=== PATIENT | male | born 2000 | race Caucasian/White ===

== ENCOUNTER 2022-12-13 07:01 | Emergency (ER) | payer OTHER, BC, SELFPAY ==
--- NOTE | 2022-12-13 | ECG_ITS ---
Test Reason : chest pain Blood Pressure : / mmHG Vent. Rate : 085 BPM Atrial Rate : 085 BPM P-R Int : 134 ms QRS Dur : 084 ms QT Int : 334 ms P-R-T Axes : 061 087 059 degrees QTc Int : 397 ms Normal sinus rhythm with sinus arrhythmia Normal ECG No previous ECGs available Referred By: Generic ED Physician Electronically Signed By:RADHAMES LAMAR MD
--- NOTE | ~2022-12-13 | XR_ITS ---
EXAMINATION: XR CHEST CLINICAL INFORMATION: Right-sided chest pain COMPARISON: None TECHNIQUE: 2 views of the chest were obtained. FINDINGS: No significant abnormality is noted involving the heart, lungs, mediastinum, bony thorax or soft tissues. XR/XR chest 2V IMPRESSION: No acute pulmonary disease.
[2022-12-13 07:04] VITALS: BP 118/76; PULSE 86; RESP 22; TEMP 36.8; O2SAT 98; BMI 28.1
[2022-12-13 07:24] VITALS: BP 126/69; PULSE 83; RESP 13; O2SAT 97
--- NOTE | 2022-12-13 07:34 | PC.NURSE ---
pt a+o x4, he reports that he woke up this morning with r sided chest discomfort that he describes as chest pressure . he reports that this is the first time this has happened. pt has hx of asthma and he reports that this doesn't feel like his asthma. he denies sob. vss.
--- OUTSIDE RECORDS SUMMARY | 2022-12-13 07:40 | XMS_ITS | Continuity of Care Document ---
:2000 Author Organization [facility] Address [address] [place] [address]- Care Team Providers Name Role Phone Not on Staff, PCP Primary Care Physician Unavailable Encounter [facility] [place] Date(s): 07/22/22 - 07/23/[address] [address]- Encounter Diagnosis Opiate overdose (Final) - 07/23/22 Discharge Disposition: A-D/C Home Attending Physician: Davdi Jenkins MD Admitting Physician: David Jenkins MD Referring Physician: Not on Staff, Referring MD Allergies, Adverse Reactions, Alerts No Known Allergies Medications Advair Diskus 250 mcg-50 mcg inhalation powder 1 puffs, Inhalation, 2 times a day, rinse mouth and throat after use, # 60 each, 3 Refills, Maintenance, 05/09/15 11:58:02, Powder, 1 puffs Inhalation 2 times a day,Instr:rinse mouth and throat after use Start Date: 05/09/15 Status: OrderedAdvair Diskus 500 mcg-50 mcg inhalation powder 1, puffs, Inhalation, 2 times a day, rinse mouth and throat after use, # 1 cartridge, Refills 1, Tot. Refills 1, Maintenance, 06/30/19 12:05:26 EDT, Powder, Route to Pharmacy Electronically, [id number], [facility] #... Start Date: 06/30/19 Status: OrderedAlbuterol 0 Refills, Maintenance, 05/09/15 11:47:34 Start Date: 05/09/15 Status: Orderedalbuterol CFC free 90 mcg/inh inhalation aerosol 2 to 6 puffs, Inhalation, Every 4 hours, PRN, use with spacer chamber, # 1 each, Refills 0, Tot. Refills 0, Maintenance, 06/30/19 12:06:31 EDT, Route to Pharmacy Electronically, [id number], [facility] #[id number] Start Date: 06/30/19 Status: OrderedFlovent HFA 220 mcg/inh inhalation aerosol 2 puffs, Inhalation, 2 times a day, 0 Refills, Maintenance, 05/09/15 11:43:22 Start Date: 05/09/15 Status: Orderedloratadine 10 mg oral tablet 1 tablet = 10 mg, By Mouth, Daily, # 30 tablet, 3 Refills, Maintenance, 05/09/15 11:44:31, Tablet, 1tablet By Mouth Daily Start Date: 05/09/15 Status: OrderedProAir HFA 90 mcg/inh inhalation aerosol with adapter 2 puffs, Inhalation, Every 4 hours, PRN for wheezing, use with spacer chamber as directed 15 minutesbefore exercise, # 8.5 Gm, 2 Refills, Maintenance, 05/09/15 12:01:35, Aerosol Start Date: 05/09/15 Status: OrderedSingulair 10 mg oral tablet 1 tablet = 10 mg, By Mouth, Daily in PM, # 30 tablet, 0 Refills, Maintenance, 05/09/15 11:45:55, Tablet Start Date: 05/09/15 Status: OrderedSingulair 10 mg oral tablet 10 mg, 1, tablet, By Mouth, Daily, # 30 tablet, Refills 1, Tot. Refills 1, Maintenance, 06/30/19 12:06:19 EDT, Route to Pharmacy Electronically, [id number], [facility] #[id number] Start Date: 06/30/19 Status: OrderedTriamcinolone 0.1% ointment Topically, 3 times a day, 0 Refills, Maintenance, 05/09/15 11:46:49 Start Date: 05/09/15 Status: Ordered Problem List Condition Effective Dates Status Health Status Informant Asthma(Confirmed) Active Results Radiology Reports Exam Date Time Procedure Performing Provider Status 07/23/22 4:31 AM Chest 2 Views Frontal and Lat Jazmín Gordon (Verified) Notes:(Chest 2 Views Frontal and Lat) Reason For Exam: Shortness of Breath, Fever;Other:RESULT: Chest 2 Views Frontal and Lat Chest 2 Views Frontal and Lat REASON: Shortness of Breath, Fever, concern for pneumonia COMPARISON: Chest x-ray 05/09/2015 FINDINGS: LINES AND TUBES: None. LUNGS AND PLEURA: The lungs are clear. No pleural effusion. No pneumothorax. HEART, MEDIASTINUM AND ZAC: Normal. BONES AND SOFT TISSUES: Normal. IMPRESSION: Normal. I have personally reviewed the images and I agree with this report. WSN: [id number] Ordering Physician: Pal Neri Dictated By: Altagracia Forman MD Dictated Date/Time: 07/23/22 9:23 am Reviewed By: Juan Alberto Canales MD Signed By: Juan Alberto Canales MD Signed Date/Time: 07/23/22 9:28 am Transcribed By: CAMMY Transcribed Date/Time: 07/23/22 7:57 am Vital Signs Most recent to oldest 1 2 3 [Reference Range]: Oxygen Saturation [94-100 %] 94 % 97 % 97 % (07/23/22 5:14 AM) (07/23/22 12:48 AM) (07/22/22 11 :33 PM) Pulse Rate [55-90 bpm] 89 bpm 89 bpm 108 bpm (07/23/22 5:14 AM) (07/23/22 12:48 AM) *H* (07/22/22 11:30 P M) Blood Pressure [90-138/55-84 120/66 mm Hg 141/77 mm Hg mm Hg] (07/23/22 5:14 AM) *H* (07/22/22 11:30 PM) Respiratory Rate [16-30 18 br/min 14 br/min 16 br/mi n br/min] (07/23/22 5:14 AM) *L* (07/22/22 11:30 PM) (07/23/22 12:48 AM) Temperature [96.8-100.4 98.2 DegF DegF] (07/22/22 11:30 PM) Liters per Minute 2 L/min 1 L/min 2 L/min (07/23/22 12:48 AM) (07/22/22 11:33 PM) (07/22/22 1 0:46 PM) Mode of Delivery (Oxygen) Room air Nasal cannula Nasal cannula (07/23/22 5:14 AM) (07/23/22 12:48 AM) (07/22/22 11 :33 PM) Blood pressure sites Arm, left Arm, right (07/23/22 5:14 AM) (07/22/22 11:30 PM) Temperature Route Oral (07/22/22 11:30 PM) Social History Social History Type Response Smoking Status Never smoker; Tobacco user i n household: No entered on: 05/09/15 Sex Note BHSPowerscribe , CIS S: TRANSCRIBE Juan Alberto Canales MD: VERIFY Altagracia Forman MD: SIGN Event Display: Result: Authored Date: [id number] Chest 2 Views Frontal and Lat REASON: Shortness of Breath, Fever, concern for pneumonia COMPARISON: Chest x-ray 05/09/2015 FINDINGS: LINES AND TUBES: None. LUNGS AND PLEURA: The lungs are clear. No pleural effusion. No pneumothorax. HEART, MEDIASTINUM AND ZAC: Normal. BONES AND SOFT TISSUES: Normal. IMPRESSION: Normal. I have personally reviewed the images and I agree with this report. WSN: [id number] Ordering Physician: Pal Neri Dictated By: Altagracia Forman MD Dictated Date/Time: 07/23/22 9:23 am Reviewed By: Juan Alberto Canales MD Signed By: Juan Alberto Canales MD Signed Date/Time: 07/23/22 9:28 am Transcribed By: CAMMY Transcribed Date/Time: 07/23/22 7:57 am Care Team PersonnelName: Not on Staff, PCP
--- OUTSIDE RECORDS SUMMARY | 2022-12-13 07:40 | XMS_ITS | Continuity of Care Document ---
:2000 Author Organization [facility] Address [address] [place] [address]- Care Team Providers Name Role Phone Angel PORTILLO, Raj Pradhan Primary Care Physician [place] [facility] [place] - 05/02/[address] [address] Attending Physician: Ian Toussaint MD, V Admitting Physician: Ian Toussaint MD, V Allergies, Adverse Reactions, Alerts Substance Reaction Severity Status NKA Active Medications Advair Diskus 250 mcg-50 mcg inhalation [...] 12:05:26 EDT, Powder, Route to Pharmacy Electronically, [id number], [facility] #... Start Date: 06/30/19 Status: OrderedAlbuterol 0 Refills, Maintenance, 05/09/15 11:47:34 Start Date: 05/09/15 Status: Orderedalbuterol CFC free 90 mcg/inh inhalation aerosol 2 to 6 puffs, Inhalation, Every 4 hours, PRN, use with spacer chamber, # 1 each, Refills 0, Tot. Refills 0, Maintenance, 06/30/19 12:06:31 EDT, Route to Pharmacy Electronically, [id number], [email or web address] #[id number] Start Date: 06/30/19 Status: OrderedFlovent HFA 220 [...] 06/30/19 12:06:19 EDT, Route to Pharmacy Electronically, [id number], [facility] #[id number] Start Date: 06/30/19 Status: OrderedTriamcinolone 0.1% ointment Topically, 3 times a day, 0 Refills, Maintenance, 05/09/15 11:46:49 Start Date: 05/09/15 Status: Ordered Problem List Condition Effective Dates Status Health Status Informant Asthma(Confirmed) Active Social History Social History Type Response Smoking Status Never smoker; Tobacco user i n household: No entered on: 05/09/15 Sex
--- OUTSIDE RECORDS SUMMARY | 2022-12-13 07:40 | XMS_ITS | Continuity of Care Document ---
:2000 Author Organization [facility] Address [address] [place] [address]- Care Team Providers Name Role Phone Raj Ortiz MD Primary Care Physician [place] [facility] [place]): [place]21 [facility] [address] [place] [address] [address] [place], [place] [address] Attending Physician: Norbert PORTILLO, Ian Randhawa Referring Physician: Raj Ortiz MD Allergies, Adverse Reactions, Alerts Substance Reaction Severity [...] 12:05:26 EDT, Powder, Route to Pharmacy Electronically, [id number], [facility] #... Start Date: 06/30/19 Status: OrderedAlbuterol 0 Refills, Maintenance, 05/09/15 11:47:34 Start Date: 05/09/15 Status: Orderedalbuterol CFC free 90 mcg/inh inhalation aerosol 2 to 6 puffs, Inhalation, Every 4 hours, PRN, use with spacer chamber, # 1 each, Refills 0, Tot. Refills 0, Maintenance, 06/30/19 12:06:31 EDT, Route to Pharmacy Electronically, [id number], [facility] #[id number] Start Date: 06/30/19 Status: OrderedFlovent HFA 220 [...] 06/30/19 12:06:19 EDT, Route to Pharmacy Electronically, [id number], [facility] #[id number] Start Date: 06/30/19 Status: OrderedTriamcinolone 0.1% ointment Topically, 3 times a day, 0 Refills, Maintenance, 05/09/15 11:46:49 Start Date: 05/09/15 Status: Ordered Problem List Condition Effective Dates Status Health Status Informant Asthma(Confirmed) Active Vital Signs Most recent to oldest [Reference Range]: 1 Height 171 cm (01/22/21 4:15 PM) Weight 78.7 kg (01/22/21 4:15 PM) Body Mass Index [18.5-24.99] 26.91 *H* (01/22/21 4:15 PM) Dry Weight 78.7 kg (01/22/21 4:15 PM) Social History Social History Type Response Smoking Status Never smoker; Tobacco user i n household: No entered on: 05/09/15 Sex
--- OUTSIDE RECORDS SUMMARY | 2022-12-13 07:40 | XMS_ITS | Continuity of Care Document ---
:2000 Author Organization [facility] Address [address] [place] [address] [address] [place] [address]- Care Team Providers Name Role Phone Angel PORTILLO, Raj Pradhan Primary Care Physician [place] [facility] [place] 02[place]/21 [facility] [address] [place] [address] [address] [place] [address]- Attending Physician: Óscar Vo Admitting Physician: AdmtrÓscar Referring Physician: Admtr, Ar8 Allergies, Adverse Reactions, Alerts Substance Reaction Severity [...] 12:05:26 EDT, Powder, Route to Pharmacy Electronically, [id number], [facility] #... Start Date: 06/30/19 Status: OrderedAlbuterol 0 Refills, Maintenance, 05/09/15 11:47:34 Start Date: 05/09/15 Status: Orderedalbuterol CFC free 90 mcg/inh inhalation aerosol 2 to 6 puffs, Inhalation, Every 4 hours, PRN, use with spacer chamber, # 1 each, Refills 0, Tot. Refills 0, Maintenance, 06/30/19 12:06:31 EDT, Route to Pharmacy Electronically, [id number], [facility] #[id number] Start Date: 06/30/19 Status: OrderedFlovent HFA 220 [...] 06/30/19 12:06:19 EDT, Route to Pharmacy Electronically, [id number], [facility] #[id number] Start Date: 06/30/19 Status: OrderedTriamcinolone 0.1% ointment Topically, 3 times a day, 0 Refills, Maintenance, 05/09/15 11:46:49 Start Date: 05/09/15 Status: Ordered Problem List Condition Effective Dates Status Health Status Informant Asthma(Confirmed) Active Social History Social History Type Response Smoking Status Never smoker; Tobacco user i n household: No entered on: 05/09/15 Sex
--- OUTSIDE RECORDS SUMMARY | 2022-12-13 07:40 | XMS_ITS | Continuity of Care Document ---
:2002 Author Organization [facility] Address [address] [place] [address]- Care Team Providers Name Role Phone Angel PORTILLO, Raj Pradhan Primary Care Physician [place] [facility] [place] - 05/16/[address] [address] Attending Physician: Ian Toussaint MD, V Admitting [...] 12:05:26 EDT, Powder, Route to Pharmacy Electronically, [id number], [facility] #... Start Date: 06/30/19 Status: OrderedAlbuterol 0 Refills, Maintenance, 05/09/15 11:47:34 Start Date: 05/09/15 Status: Orderedalbuterol CFC free 90 mcg/inh inhalation aerosol 2 to 6 puffs, Inhalation, Every 4 hours, PRN, use with spacer chamber, # 1 each, Refills 0, Tot. Refills 0, Maintenance, 06/30/19 12:06:31 EDT, Route to Pharmacy Electronically, [id number], [facility] #[id number] Start Date: 06/30/19 Status: OrderedFlovent HFA 220 [...] 06/30/19 12:06:19 EDT, Route to Pharmacy Electronically, [id number], [facility] #[id number] Start Date: 06/30/19 Status: OrderedTriamcinolone 0.1% ointment Topically, 3 times a day, 0 Refills, Maintenance, 05/09/15 11:46:49 Start Date: 05/09/15 Status: Ordered Problem List Condition Effective Dates Status Health Status Informant Asthma(Confirmed) Active Social History Social History Type Response Smoking Status Never smoker; Tobacco user i n household: No entered on: 05/09/15 Sex
--- NOTE | 2022-12-13 08:24 | ED.CHESTPAIN ---
HPI - Chest Pain General Chief Complaint: Chest Pain <ЮЛИЯ Baxter Last Filed: 12/13/22 09:32> Stated Complaint: chest pain diff breathing <ЮЛИЯ Baxter Last Filed: 12/13/22 09:32> Time Seen by Provider: 12/13/22 08:23 <ЮЛИЯ Baxter Last Filed: 12/13/22 09:32> Source: patient <ЮЛИЯ Baxter Last Filed: 12/13/22 09:32> Mode of arrival: ambulatory <ЮЛИЯ Baxter Last Filed: 12/13/22 09:32> Limitations: no limitations <ЮЛИЯ Baxter Last Filed: 12/13/22 09:32> History of Present Illness HPI narrative: 22 yo male with history of moderate persistent asthma presenting to the ER for evaluation of right-sided chest burning with inspiration. He feels like it is difficult to take a deep breath due to an extra bone in his chest. He has been breathing shallowly this morning because of it. He denies any cough or URI symptoms. He states the sensation is only there when he tries to take a deep breath. He has no pain at rest. No difficulty breathing or shortness of breath. No wheezing. He ran out of his asthma maintenance inhaler. No fever or chills. No nausea, vomiting, abdominal pain. No one else at home with similar symptoms. <ЮЛИЯ Baxter Last Filed: 12/13/22 09:32> MD complaint: chest discomfort <ЮЛИЯ Baxter Last Filed: 12/13/22 09:32> Onset (ago): hour(s) <ЮЛИЯ Baxter Last Filed: 12/13/22 09:32> Timing of current episode: episodic <ЮЛИЯ Baxter Last Filed: 12/13/22 09:32> Prior episodes: No <ЮЛИЯ Baxter Last Filed: 12/13/22 09:32> Onset: during rest <ЮЛИЯ Baxter Last Filed: 12/13/22 09:32> Pain location: right chest <ЮЛИЯ Baxter Last Filed: 12/13/22 09:32> Pain radiation: none <ЮЛИЯ Baxter - Last Filed: 12/13/22 09:32> Severity: moderate <ЮЛИЯ Baxter - Last Filed: 12/13/22 09:32> Quality: burning <ЮЛИЯ Baxter - Last Filed: 12/13/22 09:32> Relieving factors: rest <ЮЛИЯ Baxter - Last Filed: 12/13/22 09:32> Exacerbating factors: inspiration and palpation <ЮЛИЯ Baxter Last Filed: 12/13/22 09:32> Treatment prior to arrival: none <ЮЛИЯ Baxter - Last Filed: 12/13/22 09:32> Risk Factors Coronary artery disease risk factors: none <ЮЛИЯ Baxter Last Filed: 12/13/22 09:32> Thoracic aortic dissection risk factors: none <ЮЛИЯ Baxter Last Filed: 12/13/22 09:32> Related Data Home Medications: Previous Rx's Medication Instructions Recorded budesonide-formoterol HFA 80 1 inh inhalation BID #10.2 grams 12/13/22 mcg-4.5 mcg/actuation aerosol inhaler (Symbicort) <ЮЛИЯ Baxter - Last Filed: 12/13/22 09:32> Allergies/Adverse Reactions: Allergies Allergy/AdvReac Type Severity Reaction Status Date / Time bee pollen [bee stings] Allergy Unknown Verified 12/13/22 07:12 mustard Allergy Unknown Verified 12/13/22 07:12 <ЮЛИЯ Baxter - Last Filed: 12/13/22 09:32> Review of Systems Review of Systems: Yes all other systems are reviewed and are negative <ЮЛИЯ Baxter Last Filed: 12/13/22 09:32> PMF Social History Social History: Social History Advance Directives: No <ЮЛИЯ Baxter Last Filed: 12/13/22 09:32> Physical Exam Vital Signs: Vital Signs: Last Vital Signs Temp 98.2 F 12/13/22 07:04 Pulse 84 12/13/22 09:27 Resp 13 12/13/22 07:24 BP 124/68 12/13/22 09:27 Pulse Ox 97 12/13/22 09:27 O2 Del Method 12/13/22 09:27 BMI result Body Mass Index 28.1 <ЮЛИЯ Baxter - Last Filed: 12/13/22 09:32> Vital Signs: Last Vital Signs Temp 98.2 F 12/13/22 07:04 Pulse 84 12/13/22 09:27 Resp 13 12/13/22 07:24 BP 124/68 12/13/22 09:27 Pulse Ox 97 12/13/22 09:27 O2 Del Method 12/13/22 09:27 BMI result Body Mass Index 28.1 <Flako Simpson MD - Last Filed: 12/13/22 15:52> Appearance: Alert. Oriented X3. No acute distress. Eyes: Pupils equal, round and reactive to light. ENT: Pharynx normal. Neck: Normal inspection. Neck supple. CVS: Normal heart rate and rhythm. Pulses normal. Respiratory: No respiratory distress. Breath sounds normal. mild anterior chest wall tenderness on the right side only. Abdomen: Soft and nontender. +BS x4 Skin: Skin warm and dry. Normal skin color. Normal skin turgor. No rashes. Extremities: No lower extremity edema. Negative Homans sign Neuro: Oriented X 3. grossly normal, nonfocal <ЮЛИЯ Baxter - Last Filed: 12/13/22 09:32> Course Course Course Narrative: 22-year-old male presenting to the ER for evaluation of right-sided burning pain on inspiration as well as difficulty taking a deep breath that started this morning. He has history of asthma, ran out of his maintenance medication. He denies any wheezing but was using his albuterol inhaler yesterday. Minimal cough, no fevers or your eye symptoms. On examination his lungs are clear. Vital signs are normal. He appears well. EKG without any ischemic changes. Doubt cardiac etiology. Will get chest x-ray. <ЮЛИЯ Baxter - Last Filed: 12/13/22 09:32> Medical Decision Making Differential Diagnosis Differential Diagnoses: The differential diagnosis associated with the presentation includes <ЮЛИЯ Baxter - Last Filed: 12/13/22 09:32> Chest wall pain, costochondritis, asthma exacerbation, viral URI, shingles, pneumonia, bronchitis, atypical chest pain, less likely ACS or PE <ЮЛИЯ Baxter - Last Filed: 12/13/22 09:32> Independent Interpretation I performed an independent interpretation of an: Plain X-Ray <ЮЛИЯ Baxter - Last Filed: 12/13/22 09:32> Interpretation: normal CXR, no PNA, effusion or PTX <ЮЛИЯ Baxter - Last Filed: 12/13/22 09:32> Radiology Impression Discussion of test interpretation with radiology: I have reviewed the radiologist's reading. <ЮЛИЯ Baxter - Last Filed: 12/13/22 09:32> Radiologist Impression: IMPRESSION: No acute pulmonary disease. EKG - sinus rhythm with sinus arrhythmia, ventricular rate 85 beats per minute, normal IL interval, normal QTC, no ST segment elevations or depressions. <ЮЛИЯ Baxter Last Filed: 12/13/22 09:32> Independent Historian Clinical information obtained from an independent historian. History obtained from or confirmed by: Friend <ЮЛИЯ Baxter - Last Filed: 12/13/22 09:32> Tests considered The following testing was considered but not selected: Labs in CTA not indicated today. <ЮЛИЯ Baxter - Last Filed: 12/13/22 09:32> Prescription Management I considered prescription management with: Pain Medication <ЮЛИЯ Baxter - Last Filed: 12/13/22 09:32> NSAIDs and Tylenol okay for atypical, most likely musculoskeletal pain. <ЮЛИЯ Baxter - Last Filed: 12/13/22 09:32> Attestation Attending Attestation: I personally reviewed PA/resident/nurse practitioner note. I reviewed a all results and treatment plan. I agree with the assessment and plan. I agree with disposition. <Flako Simpson MD - Last Filed: 12/13/22 15:52> Critical Care Time Critical Care Time Critical Care Time: No <ЮЛИЯ Baxter Last Filed: 12/13/22 09:32> Discharge Plan Discharge Clinical Impression: Atypical chest pain <ЮЛИЯ Baxter Last Filed: 12/13/22 09:32> Patient Disposition: Home, Self-Care <ЮЛИЯ Baxter - Last Filed: 12/13/22 09:32> Instructions: Noncardiac Chest Pain (ED) <ЮЛИЯ Baxter - Last Filed: 12/13/22 09:32> Additional Instructions: Your EKG and chest x-ray were normal today. Recommend using her albuterol inhaler as needed for shortness of breath. Rest, no strenuous activity. Recommend following up with your primary care doctor. If you develop new or worsening symptoms call 911 or come back to the ER for further evaluation. <ЮЛИЯ Baxter - Last Filed: 12/13/22 09:32> Prescriptions: New budesonide-formoterol [Symbicort] 80-4.5 mcg/actuation HFA aerosol inhaler 1 inh inhalation BID Qty: 10.2 0RF <ЮЛИЯ Baxter - Last Filed: 12/13/22 09:32> Stand Alone Forms: Work/School Release <ЮЛИЯ Baxter - Last Filed: 12/13/22 09:32> Interventions: ED Discharge Assessment Last Done: 12/13/22 09:31 <ЮЛИЯ Baxter - Last Filed: 12/13/22 09:32> Discharge Date/Time: 12/13/22 09:32 <ЮЛИЯ Baxter - Last Filed: 12/13/22 09:32>
[2022-12-13 09:27] VITALS: BP 124/68; PULSE 84; O2SAT 97
== END 2022-12-13 09:32 | disposition home or self-care (01) ==
PROVIDERS: Emergency Provider Emergency Medicine
DX: R07.89 Other chest pain (principal); R07.1 Chest pain on breathing; I10 Essential (primary) hypertension; J45.909 Unspecified asthma, uncomplicated
CPT/HCPCS: 71046; 93005; 99283; 99284

== ENCOUNTER 2023-01-14 22:33 | Emergency (ER) | payer BC, SELFPAY ==
[2023-01-14 22:39] VITALS: BMI 27.3
--- NOTE | 2023-01-14 22:42 | ED.OVERDOSE ---
HPI - Overdose General Chief Complaint: Overdose Stated Complaint: overdose Time Seen by Provider: 01/14/23 22:40 Source: patient and EMS Mode of arrival: EMS Limitations: no limitations History of Present Illness HPI Narrative: This is a 22-year-old male presenting to the emergency department status post accidental overdose on Percocet, patient reports snorting to 10 mg Percocets just prior to arrival, patient's family member gave him to 4 mg intranasal Narcan after he overdose, patient arrived via EMS alert and oriented x4 no acute distress vomited once on the ambulance. Patient denies suicidal and homicidal ideation. Tells me this is not the 1st time this has happened to him. Denies any medical complaints such as chest pain shortness of breath. Tells me he does not want detox and he will try to stop using Percocet on his own. Related Data Previous Rx's Medication Instructions Recorded budesonide-formoterol HFA 80 1 inh inhalation BID #10.2 grams 12/13/22 mcg-4.5 mcg/actuation aerosol inhaler (Symbicort) Allergies Allergy/AdvReac Type Severity Reaction Status Date / Time bee pollen [bee stings] Allergy Unknown Verified 12/13/22 07:12 mustard Allergy Unknown Verified 12/13/22 07:12 Review of Systems Review of Systems: Constitutional : No Fever, No Chills ENT/Mouth : No sore throat, No Rhinorrhea Eyes: No Eye Pain, No Swelling, No Redness Cardiovascular : No Chest Pain, No SOB Respiratory : No Cough, No Sputum Gastrointestinal : No Nausea, No Vomiting, No Diarrhea, No abdominal Pain Genitourinary : No Dysuria, No Hematuria Musculoskeletal : No joint pain, No Myalgias, No Joint Swelling Skin : No Skin Lesions, No rash Neuro : No Weakness, No Numbness Psych : No Anxiety, No Depression, No SI/HI/AH/VH All other systems reviewed and are negative Yes all other systems are reviewed and are negative [facility] Past Medical History Attestation statement: The following information was validated with the patient. Source: old records reviewed and nursing notes reviewed Social History Social History Advance Directives: No Advance Directives Information Provided: Yes Physical Exam Vital Signs: Vital Signs: Last Vital Signs Temp 98 F 01/14/23 23:54 Pulse 92 02/21/23 23:54 Resp 20 01/14/23 23:54 BP 113/66 01/14/23 23:54 Pulse Ox 97 01/14/23 23:54 O2 Del Method 01/14/23 23:54 BMI result Body Mass Index 27.3 vss Appearance: Alert.? Oriented X3.? No acute distress.? Head: Normocephalic, atraumatic, no step-offs or deformities Eyes: Pupils equal, round and reactive to light.? Neck: Normal inspection.? Neck supple.? CVS: Normal heart rate and rhythm.? Pulses normal.? Respiratory: No respiratory distress.? Breath sounds normal.? Abdomen: Soft and nontender.? Skin: Skin warm and dry.? Normal skin color.? Normal skin turgor.? Extremities: No lower extremity edema.? No calf ttp. 5/5 strength to bilateral upper and lower extremities Neuro: Oriented X 3.? No motor deficit.? No sensory deficit. CN 2-12 intact Course Reevaluation(s) Reevaluation #1: I did have an opportunity to speak to patient's mom who tells me that she found patient's cyanotic on his bed, she is 1 who administered Narcan. She tells me he is going through a lot of life stressors, recently lost his job. She tells me this is not his 1st overdose, she reports that he overdosed around June/July of 2021. Patient unwilling to go to detox. She tells me substance abuse runs in the family. She tells me that she lives with son and she has a great relationship with him. She is very upset that he is unwilling to go to detox, she has tried to convince him multiple times. She is considering obtaining a secton 35 Time: 23:09 Reevaluation #2: Care team spoke to patient offered him resources refusing detox. They spoke to mother and educated her on [place] 35. And was provided with additional resources. patient's vital signs are stable, has not been able to give us a urine. Requesting to go home. Again refusing detox, denies SI HI. Plan is to stay with mom agustin, friends will be with him at home tomorrow. Educated on avoiding Percocets and other drugs as they can be laced. Will give Narcan for home. At this time patient will be discharged home with mom Educated patient on diagnosis and treatment plan, answered all question, patient verbalizes understanding. At this time patient will be discharged home, advised to return with new or worsening symptoms. Educated on worrisome signs and symptoms and when to return. At this time I feel comfortable discharge home. Time: 00:30 Medical Decision Making Medical Decision Making [facility] Narrative: 22-year-old male presents with accidental overdose, received 2 4 mg intranasal Narcan prior to arrival Physical exam benign. Likely accidental overdose. Unlikely suicide attempt. Will rule out polysubstance abuse as another differential. Plan at this time is substance use screening, substance use disorder evaluation. Patient without medical complaints no need for laboratory studies at this time. Differential Diagnosis Differential Diagnoses: The differential diagnosis associated with the presentation includes Likely accidental overdose. Unlikely suicide attempt. Will rule out polysubstance abuse as another differential. Admission/Observation Consideration of admission/observation: Escalation of care including admission/observation considered Unlikely Consult Healthcare Provider Management of the patient was discussed with: Behavioral Health Provider Lab Data [facility] Lab Attestation statement: I reviewed the patient's lab results. Labs: Lab Results 01/14/23 Range/Units 23:02 COVID-19 (ISMAEL) Negative (Negative) COVID-19 Clin Com See Note Core Measures AMI core measures followed: Yes Measure exclusions: not indicated Critical Care Time Critical Care Time Critical Care Time: No Discharge Plan Discharge Clinical Impression: Drug overdose Patient Disposition: Home, Self-Care Instructions: Adult Overdose (ED) Additional Instructions: Take your medications as prescribed. If you were prescribed antibiotics today, it is important that you take your medication to their entirety, do not skip any doses, do not finish them early. Follow-up with your primary care provider this week. Return to the emergency department with new or worsening symptoms. Such as fevers, chills, chest pain, shortness of breath, nausea, vomiting, dizziness, headache, vision changes, lethargy, suicidal or homicidal ideation In case of emergency call 911 You have been given take home Narcan, please carry this on you at all times the skin severe life. I offered you detox however you refused. Please note that Percocets and all opiates can kill you these are very dangerous. Prescriptions: No Action budesonide-formoterol [Symbicort] 80-4.5 mcg/actuation HFA aerosol inhaler 1 inh inhalation BID Qty: 10.2 0RF Referrals: Physician,Unknown J [Primary Care Provider] - 2 days [facility]Provider Group[facility] - 1 day Interventions: [place]-Suicide Risk Severity Scale Last Done: 01/14/23 23:55
[2023-01-14 22:47] VITALS: BP 125/72; PULSE 105; RESP 22; TEMP 36.6; O2SAT 96
--- NOTE | 2023-01-14 23:03 | MHC.EDTECH ---
patient came in via ems for overdosed ,pt was change into hospital attire ,belonging ,was secured and locked up in decon ,pt mom at bedside ,covid swab taken and sent to lab ,pt was hooked up to groundwater monitoring technician per provider order ,awaiting on urine sample .
[2023-01-14 23:38] LABS: COVID-19 Test Negative (Negative); IDNOW Serial# 9DB6401D
[2023-01-14 23:42] VITALS: BP 122/59; PULSE 91; RESP 20; O2SAT 97
[2023-01-14 23:54] VITALS: BP 113/66; PULSE 92; RESP 20; TEMP 36.6; O2SAT 97
--- NOTE | 2023-01-14 23:55 | PC.NURSE ---
Pt's V/s are stable, pt family is at bedside. Pt denies any SI/HI.
--- NOTE | 2023-01-14 23:58 | HO.SUDE ---
Met with pt for an unintentional overdose on percocets. Pt reports he was home ingested 2 (20) mg tablets. His mother found him unresponsive and gave him narcan. she reports this is not the first time he overdosed. She states that she was drug testing him at home, and suspected that he was using because he kept refusing. He lost his job 3 weeks ago and has been having a hard time. He declines any substance use treatment or therapy. Mom is concerned and wanted information on therapy, recovery support and detox which was provided. Pt denies SI and states he was just trying to get high . Pt repeatedly denies services and mom reports that she will go section 35 him if he continues to test positive for the at home drug tests.
[2023-01-15] MEDS: Naloxone HCl Nasal TAKE HOME 4 MG SPRAY NOSTRILALT (00:45)
--- NOTE | 2023-01-15 00:56 | PC.NURSE ---
Reviewed discharge instruction with pt, pt verbalized understanding, reviewed Narcan education.
--- NOTE | 2023-01-15 00:57 | PC.NURSE ---
Notified MARK Matthews, pt was discharge with no sign of distress.
== END 2023-01-15 00:58 | disposition home or self-care (01) ==
PROVIDERS: Physician Assistant; Emergency Provider Internal Medicine
DX: T40.2X1A Poisoning by other opioids, accidental (unintentional), initial encounter (principal); Y92.013 Bedroom of single-family (private) house as the place of occurrence of the external cause; Z20.822 Contact with and (suspected) exposure to COVID-19
CPT/HCPCS: 87635; 99284

== ENCOUNTER 2023-04-17 20:21 | Emergency (ER) | payer OTHER, SELFPAY ==
--- NOTE | 2023-04-17 | ECG_ITS ---
Test Reason : OVERDOSE Blood Pressure : / mmHG Vent. Rate : 091 BPM Atrial Rate : 091 BPM P-R Int : 160 ms QRS Dur : 084 ms QT Int : 322 ms P-R-T Axes : 071 090 055 degrees QTc Int : 396 ms Normal sinus rhythm with sinus arrhythmia Rightward axis Borderline ECG When compared with ECG of 13-DEC-2022 07:12, No significant change was found Referred By: Generic ED Physician Electronically Signed By:CATALINA CORTEZ
[2023-04-17 20:30] VITALS: BP 126/80; BP 129/76; PULSE 105; PULSE 110; RESP 18; TEMP 36.4; O2SAT 97; O2SAT 99; BMI 25.8
[2023-04-17 20:41] LABS: MANUAL DIFF FLAG NO
[2023-04-17 20:43] LABS: Basophils Absolute Auto 0.1 X10*3/uL (0.0-0.2); Basophils Percent Auto 1.1 % (0-2); Eosinophils Absolute Auto 1.1 X10*3/uL (0.0-0.4); Eosinophils Percent Auto 15.1 % (0-4); Hematocrit 45.9 % (42.0-52.0); Hemoglobin 15.8 g/dl (14.0-18.0); Imm Gran Abs Auto 0.03 X10*3/uL (0.00-0.03); Imm Gran Pct Auto 0.4 % (0.0-0.4); Lymphocytes Absolute Auto 1.4 X10*3/uL (1.2-4.9); Lymphocytes Percent Auto 18.7 % (20-40); Mean Corpuscular HGB Conc 34.4 g/dl (31.0-36.0); Mean Corpuscular Hemoglobin 30.4 pg (27.0-33.0); Mean Corpuscular Volume 88.4 fL (80.0-98.0); Mean Platelet Volume 9.6 fL (9.4-12.4); Monocytes Absolute Auto 0.4 X10*3/uL (0.1-1.2); Monocytes Percent Auto 5.3 % (2-11); Neutrophils Absolute Auto 4.4 x10*3/uL (2.0-8.3); Neutrophils Percent Auto 59.4 % (45-73); Platelet Count 174 X10*3/uL (160-400); Red Blood Count 5.19 X10*6/uL (4.60-5.80); Red Cell Distribution Width 11.9 % (11.0-16.0); White Blood Count 7.3 X10*3/uL (4.8-10.8)
--- NOTE | 2023-04-17 21:06 | ED_ITS ---
HPI - Overdose General Chief Complaint: Overdose Stated Complaint: overdose Time Seen by Provider: 04/17/23 21:00 Source: patient and family Mode of arrival: EMS Limitations: no limitations History of Present Illness HPI Narrative: Patient comes to the emergency room via ambulance after having an overdose. Patient's mother states that they found the patient in bed face down, cyanotic. Patient's mother administered 8 mg of intranasal Narcan, Ambulance was called. Also, received 4 mg of Zofran by EMS. On arrival, patient alert and oriented x4. Patient states that this was accidental, denies suicidal or homicidal ideation. Related Data Previous Rx's Medication Instructions Recorded budesonide-formoterol HFA 80 1 inh inhalation BID #10.2 grams 12/13/22 mcg-4.5 mcg/actuation aerosol inhaler (Symbicort) Allergies Allergy/AdvReac Type Severity Reaction Status Date / Time bee pollen [bee stings] Allergy Unknown Verified 12/13/22 07:12 mustard Allergy Unknown Verified 12/13/22 07:12 Review of Systems Review of Systems: Constitutional : No Weight loss, No Fever, No Chills, No Night Sweats, No Fatigue, No Malaise ENT/Mouth : No Hearing loss, No Ear Pain, No Nasal Congestion, No Sinus Pain, No Hoarseness, No sore throat, No Rhinorrhea, No Swallowing Difficulty Eyes: No Eye Pain, No Swelling, No Redness, No Foreign Body, No Discharge, No Vision Changes Cardiovascular : No Chest Pain, No SOB, No Dyspnea on Exertion, No Orthopnea, No Edema, No Palpitations Respiratory : No Cough, No Sputum, No Wheezing, No Smoke Exposure, No Dyspnea Gastrointestinal : No Nausea, No Vomiting, No Diarrhea, No Constipation, No abdominal Pain, No Hematochezia, No Melena Genitourinary : no irregular bleeding, No Dysuria, No Urinary Frequency, No Hematuria, No Urinary Incontinence, No Urgency, No Flank Pain, No Urinary Flow Changes, No Hesitancy Musculoskeletal : No joint pain, No Myalgias, No Joint Swelling Skin : No Skin Lesions, No rash Neuro : No Weakness, No Numbness, No Paresthesias, No Loss of Consciousness, No Dizziness, No Headache Psych : No Anxiety/Panic, No Depression, No SI/HI/AH/VH, Percocet abuse Heme/Lymph: No Bruising, No Bleeding,No Lymphadenopathy Endocrine : No Polyuria, No Polydipsia, No Temperature Intolerance [facility] Past Medical History Medical History (Updated 04/17/23 @ 21:10 by Glo Albright MD) Narcotic abuse Physical Exam Vital Signs: Vital Signs: Last Vital Signs Temp 97.6 F 04/17/23 20:30 Pulse 105 H 04/17/23 20:30 Resp 18 04/17/23 20:30 BP 129/76 04/17/23 20:30 Pulse Ox 97 04/17/23 20:30 O2 Del Method Room Air 04/17/23 20:30 BMI result Body Mass Index 25.8 Const: Other: Appearance: Alert. Oriented X3. No acute distress. Eyes: Pupils equal, round and reactive to light. ENT: Pharynx normal. Neck: Normal inspection. Neck supple. No lymph nodes noted. No crepitus CVS: Normal heart rate and rhythm. Pulses normal. Normal S1 and S2 Respiratory: No respiratory distress. Breath sounds normal. No Wheezing. No rales Abdomen: Soft and nontender. No rigidity. No distention. Skin: Skin warm and dry. Normal skin color. Normal skin turgor. Extremities: No lower extremity edema. No Lacerations. No Rash Neuro: Oriented X 3. No motor deficit. No sensory deficit. Moving all extremities. No slurred speech. CN 2 through 12 grossly intact Psych: calm, cooperative, normal affect Course Course Course Narrative: -lucy to the ED, patient alert and oriented x 3, no acute distress -patient refusing labs -patient would like to see a online health and fitness coach or the care team. -physician observe patient started at 21:00 Medical Decision Making Medical Decision Making [facility] Narrative: -the care team evaluated the patient for the care team staff, the patient's mom said that tomorrow in the morning she will go to the court and start a Section 35 -both patient and the mother requesting to be discharged home Lab Data 04/17/23 20:37 04/17/23 20:37 Labs: Lab Results 04/17/23 Range/Units 20:37 WBC 7.3 (4.8-10.8) X10*3/uL RBC 5.19 (4.60-5.80) X10*6/uL Hgb 15.8 (14.0-18.0) g/dl Hct 45.9 (42.0-52.0) % MCV 88.4 (80.0-98.0) fL MCH 30.4 (27.0-33.0) pg MCHC 34.4 (31.0-36.0) g/dl RDW 11.9 (11.0-16.0) % Plt Count 174 (160-400) X10*3/uL MPV 9.6 (9.4-12.4) fL Immature Gran % (Auto) 0.4 (0.0-0.4) % Neut % (Auto) 59.4 (45-73) % Lymph % (Auto) 18.7 L (20-40) % [place] % (Auto) 5.3 (2-11) % Eos % (Auto) 15.1 H (0-4) % Baso % (Auto) 1.1 (0-2) % Lymph # (Auto) 1.4 (1.2-4.9) X10*3/uL [place] # (Auto) 0.4 (0.1-1.2) X10*3/uL Eos # (Auto) 1.1 H (0.0-0.4) X10*3/uL Baso # (Auto) 0.1 (0.0-0.2) X10*3/uL Abs Immat Gran (auto) 0.03 (0.00-0.03) X10*3/uL Absolute Neuts (auto) 4.4 (2.0-8.3) x10*3/uL Absolute Nucleated RBC 0.000 (0.0-0.012) X10*3/uL Nucleated RBC % (auto) 0.0 (0.0-0.2) /100WBC Discharge Plan Discharge Clinical Impression: Drug overdose Patient Disposition: Home, Self-Care Instructions: Adult Overdose (ED) Additional Instructions: Please stop using narcotics, you almost today. Please follow-up with your primary care physician tomorrow. If you have any worsening or new symptoms, please return to the emergency room or call 911 Prescriptions: No Action budesonide-formoterol [Symbicort] 80-4.5 mcg/actuation HFA aerosol inhaler 1 inh inhalation BID Qty: 10.2 0RF
--- NOTE | 2023-04-17 21:30 | PC.NURSE ---
Pt ca&ox3, no signs of distress, refusing blood draw. Provider Natalee notified. Security called for globe changer. Pts family at bedside. Will continue to monitor.
[2023-04-17] MEDS: Naloxone HCl Nasal TAKE HOME 4 MG SPRAY NOSTRILALT (21:38)
--- NOTE | 2023-04-17 21:40 | MHC.CARE ---
CARE Team met with Elie due to unintentional overdose. CARE TEAM went through services but Elie is not interested in recovery at this moment. Pt reported that he uses percocets daily but have been laced with fentanyl. CARE Team educated mom on [address] 35 and provided resources.
--- NOTE | 2023-04-17 21:47 | PC.NURSE ---
Pt family requesting 2 narcan as she is afraid the one provided on d/c will not be enough if this happens again as she states it took 2 narcan doses to wake him up this time. Provider notified of family members request. will attempt to send an order in to [facility] on [address].
== END 2023-04-17 22:01 | disposition home or self-care (01) ==
PROVIDERS: Emergency Provider Emergency Medicine
DX: T65.91XA Toxic effect of unspecified substance, accidental (unintentional), initial encounter (principal); I49.8 Other specified cardiac arrhythmias; Y92.9 Unspecified place or not applicable; Z79.899 Other long term (current) drug therapy
CPT/HCPCS: 36415; 85025; 93005; 99283

== ENCOUNTER 2025-03-27 12:26 | Emergency (ER) | payer OTHER, SELFPAY ==
[2025-03-27] VITALS (8 sets, daily range): BP systolic 109–125; BP diastolic 63–80; PULSE 101–134; RESP 14–22; TEMP 37.2–37.4; O2SAT 91–98; BMI 18.5
--- NOTE | ~2025-03-27 | CT_ITS ---
CLINICAL HISTORY: IVDU with severe dyspnea CT angiography chest with contrast. 3D Postprocessing. Comparison: None Findings: The heart size is normal. RV/LV ratio is normal. Unremarkable thoracic aorta and great vessels. No aneurysm. No acute pulmonary embolus. The visualized thyroid and mediastinum are unremarkable. There is a moderate, partially loculated left pleural effusion. Moderate airspace opacity within the left lower lobe. The visualized upper abdomen is unremarkable. The bones are intact. IMPRESSION: 1. No pulmonary emboli. 2. Left lung pneumonia with loculated left parapneumonic effusion, possibly indicating empyema. This document has been electronically signed by: Rylie Madden MD on 03/27/2025 15:54:34
--- NOTE | ~2025-03-27 | XR_ITS ---
CLINICAL HISTORY: CP, SOB 1 view chest x-ray Comparison: CR/SR - XR CHEST 2V - 12/13/22 08:37 EST Findings: Moderate patchy left mid and lower lung airspace opacity. Small left pleural effusion. Normal size heart. No acute fracture. IMPRESSION: 1. Left lung pneumonia with small left parapneumonic effusion. Continued plain film follow-up is recommended to ensure resolution, and to exclude underlying neoplasm. This document has been electronically signed by: Rylie Madden MD on 03/27/2025 15:30:28
--- NOTE | 2025-03-27 12:42 | ECG_ITS ---
Test Reason : TACHYCARDIA Blood Pressure : */* mmHG Vent. Rate : 137 BPM Atrial Rate : 137 BPM P-R Int : 114 ms QRS Dur : 78 ms QT Int : 272 ms P-R-T Axes : 67 51 41 degrees QTcB Int : 410 ms Sinus tachycardia Otherwise normal ECG When compared with ECG of 17-Apr-2023 20:33, Vent. rate has increased by 46 bpm Nonspecific T wave abnormality now evident in Inferior leads Nonspecific T wave abnormality now evident in Lateral leads Referred By: Kaylie Beaver Electronically Signed By: CATALINA CORTEZ
--- NOTE | 2025-03-27 12:50 | ED_ITS ---
HPI - General Adult General Chief complaint: Back Pain/Injury Stated complaint: back pain, hard to take a breath Time Seen by Provider: 03/27/25 12:43 History of Present Illness ED Provider: Liss MUNROE narrative: The patient is a 24-year-old male who has a history of opioid abuse. He says that he uses fentanyl. He says that he only snorts drugs and that he does not use IV drugs. He has been having problems with opioid use disorder for a few years and has overdosed in the past. The patient comes to the emergency room today stating that he has felt unwell for 3 days, since . He says that he started to have pain in his left upper back on . He may have had a mild cough but not a severe cough. He felt somewhat better on Friday but then felt much worse yesterday on Friday. He has been coughing but he has been trying not to cough because coughing is very painful. He feels weak and tired and short of breath. He has had some chills but he does not know if he has had a definite fever. No vomiting. Related Data Previous Rx's ?Medication ?Instructions ?Recorded budesonide-formoterol HFA 80 1 inh inhalation BID #10.2 grams 12/13/22 mcg-4.5 mcg/actuation aerosol inhaler (Symbicort) naloxone 4 mg/actuation nasal 4 mg intranasal Q3M PRN opioid 04/17/23 spray (Narcan) overdose #2 ea Allergies Allergy/AdvReac Type Severity Reaction Status Date / Time bee pollen [bee stings] Allergy Unknown Verified 03/27/25 12:37 mustard Allergy Unknown Verified 03/27/25 12:37 Review of Systems 2 Review of Systems: Yes all other systems are reviewed and are negative [facility] Past Medical History Medical History (Updated 03/27/25 @ 17:25 by Chad Leija MD) Narcotic abuse Social History Social History Smoked in Last 30 Days: No Substance Use Type Other:: Fentanyl Last Used Substance: Hours (ago) Advance Directives: No Advance Directives Information Provided: Yes Physical Exam ED Vital Signs: Vital Signs - 24 hr 03/27/25 12:37 03/27/25 13:12 03/27/25 14:00 Temperature 99.4 F Pulse Rate 134 H 126 H 109 H Respiratory Rate 22 H 18 18 Blood Pressure 110/72 119/80 116/72 Pulse Oximetry 93 91 L 96 Oxygen Delivery Method Room Air Room Air Nasal Cannula Oxygen Flow Rate 2 03/27/25 15:12 03/27/25 16:00 Temperature Pulse Rate 111 H 101 H Respiratory Rate 18 18 Blood Pressure 109/63 117/72 Pulse Oximetry 98 96 Oxygen Delivery Method Nasal Cannula Room Air Oxygen Flow Rate 2 BMI result Body Mass Index 18.5 Const Other: The patient is a somewhat cachectic looking 24-year-old. He looks pale and unwell. He seems uncomfortable and weak. HENMT Other: Skin of the face is pale, face is symmetrical, mucous membranes moist. Eyes Other: Pupils are round equal, conjunctivae clear, extraocular movements intact, no scleral icterus Neck Neck: Yes normal visual inspection, Yes full ROM and Yes no lymphadenopathy Chest Other: No significant chest wall tenderness Resp Other: The patient has diminished air entry at the left base. Good air entry in the right side. The patient was initially mildly tachypneic. Cardio Other: The patient has a regular rate and rhythm. I do not appreciate any definite murmur. GI Other: The patient has a lot of voluntary guarding of his abdomen. I do not think he has any significant tenderness. Skin Other: Skin the skin is quite pale. Neuro Other: The patient is awake and alert. He seems fatigued and somewhat distracted by his discomfort but I think he has a normal mental status otherwise. Cranial nerves are grossly intact. He has good strength and sensation in all 4 extremities. I think he is grossly neurologically intact. Extrem Other: No peripheral edema. No calf swelling or tenderness. Extremities are well- perfused Course Reevaluation(s) Reevaluation #1: 03/27/2025 Dr. Byers's progress note: I assumed care for this patient from my colleague Dr. Leija, 24-year-old male with history of drug use presented with left lung fluid collection highly suspicious for empyema no recent pneumonia, patient declined using IV drugs in the past, all [place] [address] CRP 30 sed rate is 67, patient received IV Toradol, cefuroxime and vancomycin. Case was discussed with the thoracic surgeon at [facility] recommended to transfer to [facility] admit to the medical service and they will get and internal inpatient thoracic surgery consult. Case was accepted by Dr. Mckay. Will arrange for transportation. VSS, O2 sat is 96%, RR is 18 per minute. Time: 17:54 Medications Administered Generic Name Dose Route Start Last Admin Trade Name Freq PRN Reason Stop Dose Admin Lactated Ringer's 1,000 mls @ 999 mls/hr 03/27/25 17:30 03/27/25 17:37 Lr IV 03/27/25 18:30 999 mls/hr .Q1H1M JAYMIE Administration Discontinued Medications Generic Name Dose Route Start Last Admin Trade Name Freq PRN Reason Stop Dose Admin Ceftriaxone Sodium 1 gm 03/27/25 13:37 03/27/25 13:54 Ceftriaxone Sodium 1 Gm Vial IVPUSH 03/27/25 13:38 1 gm ONCE ONE Administration Sodium Chloride 1,000 mls @ 999 mls/hr 03/27/25 13:00 03/27/25 13:59 Ns IV 03/27/25 14:00 Infused .Q1H1M JAYMIE Infusion Vancomycin HCl 1,500 mg/ 500 mls @ 333.333 mls/hr 03/27/25 13:38 03/27/25 15:51 Sodium Chloride IV 03/27/25 15:07 Infused ONCE ONE Infusion Sodium Chloride 1,000 mls @ 999 mls/hr 03/27/25 14:15 03/27/25 15:51 Ns IV 03/27/25 15:15 Infused .Q1H1M JAYMIE Infusion Acetaminophen 1,000 mg in 100 mls @ 400 mls/hr 03/27/25 14:12 03/27/25 14:49 Ofirmev IV 03/27/25 14:26 Infused ONCE ONE Infusion Sodium Chloride 1,000 mls @ 999 mls/hr 03/27/25 16:00 03/27/25 16:51 Ns IV 03/27/25 17:00 Infused .Q1H1M JAYMIE Infusion Iohexol 100 ml 03/27/25 15:09 03/27/25 15:09 Iohexol 350 Mg/Ml 100 Ml Infus..Btl IV 03/27/25 15:10 65 ml ONCE ONE Administration Ketorolac Tromethamine 10 mg 03/27/25 14:11 03/27/25 14:35 Ketorolac Tromethamine 15 Mg/Ml Vial IVPUSH 03/27/25 14:12 10 mg ONCE ONE Administration Morphine Sulfate 4 mg 03/27/25 17:12 03/27/25 17:37 Morphine Sulfate 4 Mg/Ml Cartridge IVPUSH 03/27/25 17:13 4 mg ONCE ONE Administration Protocol Medical Decision Making Medical Decision Making [facility] Narrative: The patient is a 24-year-old male with a history of opioid use disorder. He claims that he only snorts opioids and does not inject opioids. He presents with a 3-4 day illness characterized primarily by left posterior chest pain associated with a cough and weakness. [place] [address], hemoglobin 13.9, platelet count 347, 88% neutrophils. He ESR is 67 Venous blood gas showed a pH of 7.46, pCO2 38, PO2 75 Chemistry showed normal electrolytes, normal renal function, glucose 151. Lactic acid is normal at 1.7. Total bilirubin is mildly elevated at 1.3, direct bilirubin 0.6, transaminases normal. C-reactive protein is extremely elevated at 30.77. The patient had a chest x-ray that suggested a pneumonia which I thought might be a complicated pneumonia. We therefore obtained a CT of the chest as well. I felt this showed a large loculated parapneumonic effusion. Given the patient has significantly abnormal inflammatory markers and this loculated effusion I was concerned about the possibility of an empyema. The CT reading does not give the dimension of the size of the loculated effusion but I estimate it at 8 cm x 8 cm x 7 cm. We do not have thoracic surgery at this hospital nor do we have Interventional Radiology today. I felt that the patient will be better cared for at a hospital of the [facility] more services available. The patient was given ceftriaxone and vancomycin for antibiotics. Also IV fluids. He was given IV ketorolac and IV acetaminophen for discomfort. His tachycardia improved. Blood pressures are stable. I contacted [facility] to try to transfer this patient. I was connected to the on-call thoracic surgeon who recommended that the patient be transferred onto the hospitalist service with a thoracic surgery consult. The plan at that point was to speak to a [facility] hospitalist. I have been waiting for a call back from the [facility] transfer center to speak with the hospitalist. At the end of my shift they have not yet called back to confirm the transfer. I will be signing the patient out to my colleague at change of shift pending further conversations with [facility]. Lab Data 03/27/25 13:05 03/27/25 13:05 Labs: Lab Results 03/27/25 03/27/25 03/27/25 Range/Units 12:42 13:04 13:05 WBC 24.1 H (4.8-10.8) X10*3/uL RBC 4.75 (4.60-5.80) X10*6/uL Hgb 13.9 L (14.0-18.0) g/dl Hct 40.2 L (42.0-52.0) % MCV 84.6 (80.0-98.0) fL MCH 29.3 (27.0-33.0) pg MCHC 34.6 (31.0-36.0) g/dl RDW 12.8 (11.0-16.0) % Plt Count 347 D (160-400) X10*3/uL MPV 9.1 L (9.4-12.4) fL Immature Gran % (Auto) 0.8 H (0.0-0.4) % Neut % (Auto) 88.3 H (45-73) % Lymph % (Auto) 3.4 L (20-40) % [place] % (Auto) 7.3 (2-11) % Eos % (Auto) 0.0 (0-4) % Baso % (Auto) 0.2 (0-2) % Lymph # (Auto) 0.8 L (1.2-4.9) X10*3/uL [place] # (Auto) 1.8 H (0.1-1.2) X10*3/uL Eos # (Auto) 0.0 (0.0-0.4) X10*3/uL Baso # (Auto) 0.0 (0.0-0.2) X10*3/uL Abs Immat Gran (auto) 0.20 H (0.00-0.03) X10*3/uL Absolute Neuts (auto) 21.3 H (2.0-8.3) x10*3/uL Absolute Nucleated RBC 0.000 (0.0-0.012) X10*3/uL Nucleated RBC % (auto) 0.0 (0.0-0.2) /100WBC Smear Tech's Comments VERIFIED ESR 67 H (0-15) MM/HR PT 16.8 H (10.9-12.4) SEC INR 1.4 H (0.9-1.1) VBG pH (7.32-7.43) VBG pCO2 mmHg VBG pO2 mmHg VBG HCO3 (22-26) mmol/L VBG O2 Saturation % VBG Base Excess mmol/L Sodium 132 L (135-145) mmol/L Potassium 4.2 (3.3-5.1) mmol/L Chloride 96 (96-108) mmol/L Carbon Dioxide 27 (22-29) mmol/L Anion Gap 13 (12-20) BUN 13 (9-16) mg/dL Creatinine 0.61 (0.5-1.4) mg/dL Estim Creat Clear Calc 148.6 Estimated GFR > 60 Random Glucose 151 H (60-115) mg/dL Lactic Acid 1.7 (0.5-2.0) mmol/L Calcium 9.7 (8.4-10.2) mg/dL Magnesium 1.7 (1.6-2.6) mg/dL Total Bilirubin 1.3 H (0.0-1.0) mg/dL Direct Bilirubin 0.6 H (0.0-0.5) mg/dL AST 28 (5-37) U/L ALT 10 (0-40) U/L Alkaline Phosphatase 86 (39-117) U/L Total Creatine Kinase 497 H (38-174) U/L Troponin I High Sens < 2.7 (<3.5-35.0) ng/L C-Reactive Protein 30.77 H (< or = 0.50) mg/dL Total Protein 7.4 (6.5-8.0) g/dL Albumin 3.5 (3.5-5.0) g/dL Lipase 7 L (8-78) U/L Urine Color Urine Appearance Urine pH (5.0-9.0) Ur Specific [place] (1.005-1.025) Urine Protein (Neg-Trace) mg/dL Urine Glucose (UA) (Negative) mg/dL Urine Ketones (Negative) mg/dL Urine Blood (Negative) Urine Nitrite (Negative) Ur Leukocyte Esterase (Negative) Urine RBC (0-2) /HPF Urine WBC (0-5) /HPF Ur Squamous Epith Cells (0-2) /HPF Urine Bacteria (None Seen) Hyaline Casts (0-2) /LPF Influenza Type A (PCR) NEGATIVE (Negative) Influenza Type B (PCR) NEGATIVE (Negative) RSV RNA Qual (PCR) NEGATIVE (Negative) SARS-CoV-2 RNA (RT-PCR) NEGATIVE (Negative) 03/27/25 03/27/25 Range/Units 13:14 17:08 WBC (4.8-10.8) X10*3/uL RBC (4.60-5.80) X10*6/uL Hgb (14.0-18.0) g/dl Hct (42.0-52.0) % MCV (80.0-98.0) fL MCH (27.0-33.0) pg MCHC (31.0-36.0) g/dl RDW (11.0-16.0) % Plt Count (160-400) X10*3/uL MPV (9.4-12.4) fL Immature Gran % (Auto) (0.0-0.4) % Neut % (Auto) (45-73) % Lymph % (Auto) (20-40) % [place] % (Auto) (2-11) % Eos % (Auto) (0-4) % Baso % (Auto) (0-2) % Lymph # (Auto) (1.2-4.9) X10*3/uL [place] # (Auto) (0.1-1.2) X10*3/uL Eos # (Auto) (0.0-0.4) X10*3/uL Baso # (Auto) (0.0-0.2) X10*3/uL Abs Immat Gran (auto) (0.00-0.03) X10*3/uL Absolute Neuts (auto) (2.0-8.3) x10*3/uL Absolute Nucleated RBC (0.0-0.012) X10*3/uL Nucleated RBC % (auto) (0.0-0.2) /100WBC Smear Tech's Comments ESR (0-15) MM/HR PT (10.9-12.4) SEC INR (0.9-1.1) VBG pH 7.46 H (7.32-7.43) VBG pCO2 38 mmHg VBG pO2 75 mmHg VBG HCO3 28 H (22-26) mmol/L VBG O2 Saturation 94.0 % VBG Base Excess 4.3 mmol/L Sodium (135-145) mmol/L Potassium (3.3-5.1) mmol/L Chloride (96-108) mmol/L Carbon Dioxide (22-29) mmol/L Anion Gap (12-20) BUN (9-16) mg/dL Creatinine (0.5-1.4) mg/dL Estim Creat Clear Calc Estimated GFR Random Glucose (60-115) mg/dL Lactic Acid (0.5-2.0) mmol/L Calcium (8.4-10.2) mg/dL Magnesium (1.6-2.6) mg/dL Total Bilirubin (0.0-1.0) mg/dL Direct Bilirubin (0.0-0.5) mg/dL AST (5-37) U/L ALT (0-40) U/L Alkaline Phosphatase (39-117) U/L Total Creatine Kinase (38-174) U/L Troponin I High Sens (<3.5-35.0) ng/L C-Reactive Protein (< or = 0.50) mg/dL Total Protein (6.5-8.0) g/dL Albumin (3.5-5.0) g/dL Lipase (8-78) U/L Urine Color Dark Yellow Urine Appearance Clear Urine pH 6.0 (5.0-9.0) Ur Specific [place] >= 1.030 H (1.005-1.025) Urine Protein 30 (1+) H (Neg-Trace) mg/dL Urine Glucose (UA) Negative (Negative) mg/dL Urine Ketones Trace (Negative) mg/dL Urine Blood Negative (Negative) Urine Nitrite Negative (Negative) Ur Leukocyte Esterase Negative (Negative) Urine RBC 0-2 (0-2) /HPF Urine WBC 0-5 (0-5) /HPF Ur Squamous Epith Cells 0-2 (0-2) /HPF Urine Bacteria None Seen (None Seen) Hyaline Casts 0-2 (0-2) /LPF Influenza Type A (PCR) (Negative) Influenza Type B (PCR) (Negative) RSV RNA Qual (PCR) (Negative) SARS-CoV-2 RNA (RT-PCR) (Negative) Independent Interpretation I performed an independent interpretation of an: EKG Interpretation: EKG at 12:50 shows sinus tachycardia at 137 beats per minute. No definite acute ischemic changes Critical Care Time Critical Care Time Critical Care Time: Yes Total Critical Care Time: 35 Attestation: The patient was critically ill with a high probability of imminent or life- threatening deterioration. ?I spent greater than 30 minutes of discontinuous time evaluating the patient, delivering critical care at the bedside, discussing evaluating data with consultants. ?Critical care time does not include time spent performing separately billable procedures or teaching. ?Time spent performing critical care with 35 minutes. Discharge Plan Discharge Clinical Impression: Left lower lobe pneumonia, Pleural effusion on left Patient Disposition: [facility] Prescriptions: No Action budesonide-formoterol [Symbicort] 80-4.5 mcg/actuation HFA aerosol inhaler 1 inh inhalation BID Qty: 10.2 0RF naloxone [Narcan] 4 mg/actuation spray,non-aerosol 4 mg intranasal Q3M PRN (Reason: opioid overdose) Qty: 2 0RF Rx Instructions: spray 1 dose into ONE nostril; alternate nostrils w each dose until help arrives Print Language: Peruvian
[2025-03-27] MEDS: 0.9 % Sodium Chloride 1,000 ML 999 ML IV ×3 (13:09→15:54)
[2025-03-27 13:16] LABS: Venous Blood Gas Refer to POC result
[2025-03-27 13:17] LABS: Basophils Percent Auto 0.2 % (0-2); Hematocrit 40.2 % (42.0-52.0); Hemoglobin 13.9 g/dl (14.0-18.0); Imm Gran Pct Auto 0.8 % (0.0-0.4); Lymphocytes Absolute Auto 0.8 X10*3/uL (1.2-4.9); Lymphocytes Percent Auto 3.4 % (20-40); MANUAL DIFF FLAG SCAN; Mean Corpuscular HGB Conc 34.6 g/dl (31.0-36.0); Mean Corpuscular Hemoglobin 29.3 pg (27.0-33.0); Mean Corpuscular Volume 84.6 fL (80.0-98.0); Mean Platelet Volume 9.1 fL (9.4-12.4); Monocytes Absolute Auto 1.8 X10*3/uL (0.1-1.2); Monocytes Percent Auto 7.3 % (2-11); Neutrophils Absolute Auto 21.3 x10*3/uL (2.0-8.3); Neutrophils Percent Auto 88.3 % (45-73); Platelet Count 347 X10*3/uL (160-400); Red Blood Count 4.75 X10*6/uL (4.60-5.80); Red Cell Distribution Width 12.8 % (11.0-16.0); SCAN SMEAR FLAG 1; White Blood Count 24.1 X10*3/uL (4.8-10.8)
[2025-03-27 13:18] LABS: VBG Base Excess 4.3 mmol/L; VBG HCO3 28 mmol/L (22-26); VBG pCO2 38 mmHg; VBG pH 7.46 (7.32-7.43); VBG pO2 75 mmHg
[2025-03-27 13:23] LABS: INTERNATIONAL NORM RATIO 1.4 (0.9-1.1); Prothrombin Time 16.8 SEC (10.9-12.4)
[2025-03-27 13:28] LABS: Lactic Acid 1.7 mmol/L (0.5-2.0)
[2025-03-27 13:29] LABS: Alanine Aminotransferase 10 U/L (0-40); Albumin Level 3.5 g/dL (3.5-5.0); Alkaline Phosphatase 86 U/L (39-117); Anion Gap 13 (12-20); Aspartate Amino Transferase 28 U/L (5-37); Bilirubin Direct 0.6 mg/dL (0.0-0.5); Bilirubin Total 1.3 mg/dL (0.0-1.0); Blood Urea Nitrogen 13 mg/dL (9-16); C Reactive Protein 30.77 mg/dL (< or = 0.50); Calcium 9.7 mg/dL (8.4-10.2); Carbon Dioxide 27 mmol/L (22-29); Chloride 96 mmol/L (96-108); Creatinine Clr Calc Pharmacy 148.6; Estimated Glomerular Filt Rate > 60; Glucose Random 151 mg/dL (60-115); Lipase 7 U/L (8-78); Magnesium 1.7 mg/dL (1.6-2.6); Potassium 4.2 mmol/L (3.3-5.1); Sodium 132 mmol/L (135-145); Total Protein 7.4 g/dL (6.5-8.0)
[2025-03-27 13:36] LABS: SLIDE REVIEW VERIFIED
[2025-03-27 13:39] LABS: Troponin-I High Sensitivity < 2.7 ng/L (<3.5-35.0)
--- OUTSIDE RECORDS SUMMARY | 2025-03-27 13:52 | XMS_ITS | Data Portability ---
Author Organization [facility] [address] Address [address] [place] [address] Assessment Encounter Date Assessment Date Assessment LastModified by Organization Details LastModified Time 10/24/2022 10/24/2022 Patient was seen in the office today for nausea. Reviewed history regarding recent illness, medications, symptoms, and physical exam. Studies ordered as below. Discussed plan with , who expresses understanding . Follow up as noted below. Not available 10/24/2022 19:23:44 Plan of Treatment Reminders Order Date Submit Date Provider Last Modified By Organization Details Last Modified Time Details Appointments None recorded. Lab rapid flu (A+B) 2021 022 christiano anderson _[facility], [address] [place] [address], [place], [address], 20:06:26 Referral None recorded. Procedures None recorded. Surgeries None recorded. Imaging None recorded. Medication Orders ondansetron 4 mg disintegrat ing tablet 2021 [id number], [address], [place], [id number], 2 20:06:35 oseltamivir 75 mg capsule 2021 [facility] #[id number], [address], [place], [id number], 2 20:06:34 Patient TargetsNo targets recorded. Patient Instructions Encounter Date Encounter Id Patient Instructions Last Modified By Organization Details Last Modified Time 10/24/2022 [id number] nausea and vomiting: care instructions [email or web address] Not available 10/24/2022 20:06:26 influenza (flu): care instructions [email or web address] Not available 10/24/2022 20:06:26 Try small amount s of clear liquids frequently. If vomiting occurs, wait 30-60 minutes before trying clear liquids again. Once you are able to tolerate clear liquids for at least 6 hours without vomiting, you can advance to a soft diet consisting of foods such as bananas, rice, applesauce, toast, crackers, and other foods rich in carbohydrates and low on fats and spices. If the diet is tolerated for 12-24 hours, you can slowly add other foods to your diet. If vomiting occurs, you should go back to clear liquids only and work your way back to a normal diet as outlined above. If much worse, you should seek treatment immediately. Recommend a visit to the nearest Emergency room if your symptoms worsen. Follow up with a primary care doctor for the management of your chronic conditions. Not available 10/24/2022 19:23:44 Reason for Referral None Reported. Results Created Date Observation Date Name Description Value Unit Range Abnormal Flag Note LastModifiedBy Organization Detail LastModifiedTime 10/24/20 22 10/24/2022 rapid flu (A+B) Unknown Analyte positi ve Not Available [address] [address], [address], 10/24/2022 19:34:50 10/24/20 22 10/24/2022 rapid flu (A+B) Unknown Analyte negati ve Not Available [address] [address], [address], 10/24/2022 19:34:50 Result Notes None recorded. Problems Name Problem SNOMED Code Status Onset Date Resolution Date Notes Provider Name and Address Organization Details Recorded Time Asthma 695792065 Active YUNIEL frederick PA - [facility] 10/24/2022 19:26:07 Eczema 31734960 Active YUNIEL frederick PA - [facility] 10/24/2022 19:26:15 Problem Notes None recorded. Medical Equipment None Reported. Allergies No known drug allergies Medications Name Sig Start Date Stop Date Status Note LastModified by Organization Details LastModified Time cyclobenzap rine 10 mg tablet TAKE 1/2 TO 1 TABLET BY MOUTH AT BEDTIME NEEDED FOR MUSCLE SPASM 10/24 completed Not Available Not Available Not Available benzonatate 200 mg capsule TAKE 1 CAPSULE BY MOUTH THREE TIMES DAILY FOR 7 DAYS NEEDED FOR COUGH 10/24 completed Not Available Not Available Not Available prednisone 20 mg tablet TAKE 2 TABLETS BY MOUTH EVERY DAY FOR 3 DAYS active Not Available Not Available No t Available oseltamivir 75 mg capsule TAKE 1 CAPSULE BY MOUTH TWICE DAILY FOR 5 DAYS active Not Available Not Available No t Available Advair Diskus 250 mcg-50 mcg/dose powder for inhalation INHALE 1 PUFF BY MOUTH TWICE DAILY. RINSE MOUTH OUT AFTER MED active Not Available Not Available No t Available montelukast 10 mg tablet active Not Available Not Available Not Available ondansetron 4 mg disintegrat ing tablet DISSOLVE 1 TABLET ON THE TONGUE THREE TIMES DAILY FOR 5 DAYS active Not Available Not Available No t Available fluticasone propionate 50 mcg/actuati on nasal spray,suspe nsion SHAKE LIQUID AND USE 1 SPRAY IN EACH NOSTRIL TWICE DAILY FOR ALLERGY SYMPTOMS active Not Available Not Available No t Available naproxen 500 mg tablet TAKE 1 TABLET BY MOUTH TWICE DAILY NEEDED. TAKE WITH FOOD 10/24 completed Not Available Not Available Not Available Flovent HFA 220 mcg/actuati on aerosol inhaler INHALE 2 PUFFS BY MOUTH TWICE DAILY. RINSE MOUTH WITH WATER AFTER USE. DO NOT SWALLOW. USE WHEN AROUND DUST FOR 2 DAYS active Not Available Not Available No t Available ProAir HFA 90 mcg/actuati on aerosol inhaler INHALE 2 PUFFS BY MOUTH EVERY 4 HOURS NEEDED FOR DIFFICULT BREATHING active Not Available Not Available No t Available Symbicort 80 mcg-4.5 mcg/actuati on HFA aerosol inhaler INHALE 1 PUFF BY MOUTH TWICE DAILY active Not Available Not Available No t Available buprenorphi ne 4 mg-naloxone [address] 1 FILM SUBLINGUA LLY EVERY DAY active Not Available Not Available No t Available naloxone 4 mg/actuatio n nasal spray SPRAY 1 SPRAY INTO 1 NOSTRIL NEEDED. CALL 911. REPEAT IN 2-3 MINUTES IF NO OR MINIMAL RESPONSE. active Not Available Not Available No t Available Vitals Date Recorded Body height Body mass index (BMI) [Percentile] Per age and sex Body mass index (BMI) Body weight Body temperature Respiratory rate Heart rate Oxygen saturation Oxygen saturation in Arterial blood by Pulse oximetry Systolic blood pressure Diastolic blood pressure Provider Name and Address Organization Details Last Updated DateTime 2 172.72 cm 89 % 28.1 kg/m2 72822.5 9 g 98.8 [degF] 20 /min 106 /min 97 % 97 % 122 mm[Hg] 73 mm[Hg] YUNIEL Almendarez PA - [facility] 2 19:28:04 Social History Question Answer Notes LastModified by Organizat ion Details LastModified Time Tobacco Smoking Status Current Every Day Smoker YUNIEL frederick PA - [facility] 10/24/2022 19:26:44 What Is Your Level Of Alcohol Consumption? Occasional Information not available 10/24/2022 What Is Your Water Source? City Information not available 10/24/2022 What Is Your Heat Source? Gas Information not available 10/24/2022 Have You Had Direct Contact, Or Contact During Intimacy, With Monkeypox Rash, Scabs, Or Body Fluids From A Person With Monkeypox? No Information not available 10/24/2022 Do You Use Any Illicit Or Recreational Drugs? No Information not available 10/24/2022 Have You Recently Traveled Abroad? No Information not available 10/24/2022 Do You Or Have You Ever Used Any Other Forms Of Tobacco Or Nicotine? No Information not available 10/24/2022 Sex: Unknown Functional Status None recorded. Mental Status None recorded. Family History Relationship Description Onset Age of this Age Resolved Age Notes LastModified by Organization Details LastModified Time Father No current problems or disability Not available 19:26:19 Mother No current problems or disability Not available 19:26:19 Medical History No medical history recorded. Past Encounters Encounter ID Performer Location Encounter Start Date Encounter Closed Date Diagnosis/Indication Diagnosis SNOMED-CT Code Diagnosis ICD10 Code Diagnosis Note [id number] [address] [place] [address] 04/19/2022 10:14:18 04/19/2022 12:04:48 [id number] [address] [place] [address] 07/05/2022 09:09:57 07/05/2022 10:09:25 [id number] [address] [place] [address] 08/26/2021 15:14:45 08/26/2021 17:55:51 [id number] Alexandra posadas MD [address] [place] [address] 10/24/2022 18:58:23 10/24/2022 20:05:08 Influenza caused by Influenza A virus 351347539 J09.X2 Health Concerns Section Related Observation LastModified by Organization Detai ls LastModified Time None Recorded Concern Status LastModified by Organization Details LastModified Time None Recorded Advance Directives Directive None Recorded Payers Encounter Date Sequence Insurance Name Policy Number Policy Jacob Covered Member ID Jacob Member ID Guarantor Name 08/26/2021 1 [facility] [employer] [facility] - UNIFY - ONE CARE (MEDICARE - MEDICAID REPLACEMENT) [id number] Elie Velasco [id number] 1 Elie Velasco 04/19/2022 1 [facility] - UNIFY - ONE CARE (MEDICARE - MEDICAID REPLACEMENT) [id number] Elie Velasco [id number] 1 Elie Velasco 07/05/2022 1 [facility] [employer] [facility] - UNIFY - ONE CARE (MEDICARE - MEDICAID REPLACEMENT) [id number] Elie Velasco [id number] 1 Elie Velasco 10/24/2022 1 [facility] [employer] [facility] - UNIFY - ONE CARE (MEDICARE - MEDICAID REPLACEMENT) [id number] Elie Velasco [id number] 1 Elie Velasco Notes Date Note Type Note Provider Name and Address Organization Details Recorded Time 10/24/2022 text/html Nausea / Vomitin g UCReported byTytio n:1-2 days Onset/Timing:acut e Context:no possible food sources Aggravating Factors:eating Associated Symptoms:diarrhea Alexandra Camara MD [address] [place], [address], [place] - [facility] 11/20/2022 22:36:01
[2025-03-27 13:54] LABS: Influenza A PCR NEGATIVE (Negative); Influenza B PCR NEGATIVE (Negative); Resp Syncy Virus RNA Qual PCR NEGATIVE (Negative); SARS COV2 PCR INHOUSE NEGATIVE (Negative)
[2025-03-27] MEDS: cefTRIAXone sodium 1 GM VIAL IVPUSH (13:54)
[2025-03-27 13:56] LABS: Erythrocyte Sedimentation Rate 67 MM/HR (0-15)
[2025-03-27] MEDS: vancomycin HCL 1,500 MG in 0.9 % Sodium Chloride 500 ML 333.33 MG IV (13:59)
[2025-03-27] MEDS: Ketorolac Tromethamine 15 MG/ML VIAL 10 MG IVPUSH (14:35)
[2025-03-27] MEDS: Acetaminophen 1,000 MG/100 ML PIGGYBACK 400 MG IV (14:36)
[2025-03-27] MEDS: iohexoL 350 MG/ML 100 ML INFUS..BTL IV (15:09)
[2025-03-27 17:25] LABS: Appearance Urine Clear; Color Urine Dark Yellow; Glucose Urine UA Negative (Negative); Leukocyte Esterase Urine Negative (Negative); Nitrite Urine Negative (Negative); Specific Gravity - Urine >= 1.030 (1.005-1.025); UMIC TRIGGER UACC YES; Urine Blood Negative (Negative); Urine Ketones Trace mg/dL (Negative); Urine Protein 30 (1+) mg/dL (Neg-Trace)
[2025-03-27] MEDS: Lactated Ringers 1,000 ML 999 ML IV (17:37)
[2025-03-27] MEDS: Morphine Sulfate 4 MG/ML CARTRIDGE IVPUSH (17:37)
[2025-03-27 17:46] LABS: Bacteria Urine None Seen (None Seen); Hyaline Casts Urine 0-2 /LPF (0-2); RBC Urine 0-2 /HPF (0-2); Squamous Epithelial Cell Urine 0-2 /HPF (0-2); WBC Urine 0-5 /HPF (0-5)
[2025-03-27 18:41] LABS: Amphetamine Screen Urine Not Detected (Not Detect); Barbiturates, Urine Not Detected (Not Detect); Benzodiazepines Screen Urine Not Detected (Not Detect); Buprenorphine Scr Not Detected (Not Detect); Cannabinoid Screen Urine Not Detected (Not Detect); Cocaine Screen Urine POSITIVE (Not Detect); Fentanyl, urine POSITIVE (Not Detect); Methadone Screen, Urine Not Detected (Not Detect); Opiate Screen Urine POSITIVE (Not Detect); Oxycodone Screen Urine Not Detected (Not Detect); Phencyclidine Screen Urine Not Detected (Not Detect)
--- NOTE | 2025-03-27 18:49 | PC.NURSE ---
Report given to MARK Kirkpatrick at [place] [address]- room 31 B.
[2025-03-27] MEDS: Lidocaine 4 % Patch ADH..PATCH 1 PATCH TRANSDERMA (19:47)
--- NOTE | 2025-03-27 20:15 | MHC.EDTECH ---
pt asked to charge his vape, notified that he cannot use that in the hospital,m will be given to ambulance while pt will be transferred to [facility], pt understands.
--- NOTE | 2025-03-27 21:07 | PC.NURSE ---
Report given to [facility] and informed them on pt's vape pen with security. Pt. has all belongings.
== END 2025-03-27 21:08 | disposition short-term general hospital (02) ==
PROVIDERS: Physician Assistant Medical; Emergency Provider Emergency Medicine
DX: J18.9 Pneumonia, unspecified organism (principal); J90 Pleural effusion, not elsewhere classified; R00.0 Tachycardia, unspecified; M54.50 Low back pain, unspecified; R06.02 Shortness of breath; R11.0 Nausea; Z03.818 Encounter for observation for suspected exposure to other biological agents ruled out; Z51.81 Encounter for therapeutic drug level monitoring; Z79.899 Other long term (current) drug therapy
CPT/HCPCS: 0241U; 36415; 71045; 71275; 80048; 80076; 80307; 81001; 82550; 82803; 83605; 83690; 83735; 84484; 85025; 85610; 85652; 86140; 87040; 93005; 96361; 96365; 96366; 96375; 99285; J0131; J0696; J1885; J2270; J3371; J7120; Q9967

== ENCOUNTER → 2025-03-27 12:42 | Outpatient (BNV) | payer OTHER, SELFPAY | PROVIDERS: Emergency Provider Emergency Medicine; Visit Provider Radiology Diagnostic Radiology | DX: J18.9 Pneumonia, unspecified organism (principal); J91.8 Pleural effusion in other conditions classified elsewhere | CPT/HCPCS: 71045; 71275 ==

== ENCOUNTER → 2025-03-27 12:42 | Outpatient (BNV) | payer OTHER, SELFPAY | PROVIDERS: Emergency Provider Emergency Medicine; Visit Provider Internal Medicine | DX: R00.0 Tachycardia, unspecified (principal) | CPT/HCPCS: 93010 ==